=== PATIENT | male | born 1965 | race Caucasian/White ===

== ENCOUNTER 2017-09-23 14:55 | Outpatient (CLI) | payer OTHER ==
[~2017-09-23] VITALS: Ht 172.7 cm; Wt 111.1 kg
[~2017-09-23 14:55] MED LIST: ALLP300T; ALLP300T PO; CLIN300C3 PO; HCTZ12.5T PO; LSNP10T PO; METF500T8; MPR22T; SULF1TAB38 PO
[2017-09-23] MEDS ORDERED: ALLO300T2 PO (16:16)
[2017-09-23] MEDS ORDERED: LISI1TAB8 PO (16:16)
[2017-09-23] MEDS ORDERED: FINA5TAB PO (16:16)
== END 2017-09-23 16:18 ==
LOC: PREOP 14:55
PROVIDERS: ATTEND Surgery
DX: Z01.818 Encounter for other preprocedural examination (principal); Z12.11 Encounter for screening for malignant neoplasm of colon; K21.9 Gastro-esophageal reflux disease without esophagitis

== ENCOUNTER 2017-09-29 08:42 | Day surgery (SDC) | payer OTHER ==
[~2017-09-29] VITALS: Ht 172.7 cm; Wt 111.1 kg
[~2017-09-29 08:42] MED LIST changes: +ALLO300T2 PO; +FINA5TAB PO; +LISI1TAB8 PO
[2017-09-29] MEDS ORDERED: NS IV 500 ML 500 ML IV PRN (08:49)
[2017-09-29 09:00] VITALS: BP 137/87
[2017-09-29] MEDS ORDERED: HURRICAINE EXT TUBE (BENZOCAINE) XX PRN (09:00)
--- NOTE | 2017-09-29 11:15 | History & Physicial ---
History of Present Illness History of Present Illness Reason for visit/HPI to undergo an upper endoscopy regarding symptoms of gastroesophageal reflux and concomitant screening colonoscopy Date of Admission 09/29/17 Date Seen by Provider: Sep 29, 2017 Time Seen by Provider: 11:13 I consulted on this patient on 09/29/17 11:12 Attending Physician Anu Hartman MD Admitting Physician Jazmin Adames DO Consult Allergies and Home Medications Allergies Coded Allergies: Sulfa (Sulfonamide Antibiotics) (Unverified Allergy, Unknown, 09/29/17) Home Medications Allopurinol 300 Mg Tablet, 300 MG PO DAILY, (Reported) Finasteride 5 Mg Tablet, 5 MG PO DAILY, (Reported) Lisinopril/Hydrochlorothiazide 1 Each Tablet, 1 EACH PO DAILY, (Reported) Past Zynkjfw-Iecelw-Byksuh Hx Patient Social History Marrital Status: single Employed/Student: employed Alcohol Use: Occasionally Uses Number of Drinks Today: 0 Alcohol Beverage of Choice: Beer Recreational Drug Use: No Smoking Status: Current Everyday Smoker Type Used: Cigarettes Recent Foreign Travel: No Contact w/other who traveled: No Recent Hopitalizations: No Recent Infectious Disease Expo: No Immunizations Up To Date Date of Influenza Vaccine: Sep 14, 2017 Seasonal Allergies Seasonal Allergies: No Surgeries No Respiratory No Cardiovascular Hypertension Neurological No Reproductive System Hx Reproductive Disorders: No Gastrointestinal Gastroesophageal Reflux Musculoskeletal Gout Constitutional: no symptoms reported EENTM: no symptoms reported Respiratory: no symptoms reported Cardiovascular: no symptoms reported Gastrointestinal: see HPI Genitourinary: no symptoms reported Musculoskeletal: no symptoms reported Skin: no symptoms reported Psychiatric/Neurological: No Symptoms Reported Physical Exam Vital Signs Vital Sign - Last 12Hours 09/29/17 09:00 Temp 97.8 Pulse 99 Resp 16 B/P (MAP) 137/87 (104) Pulse Ox 96 O2 Delivery Room Air Capillary Refill : General Appearance: No Apparent Distress HEENT: Normal ENT Inspection Neck: Normal Inspection Respiratory: Lungs Clear Cardiovascular: Regular Rate, Rhythm Gastrointestinal: Non Tender, Soft Rectal: Deferred Back: Normal Inspection Extremity: Normal Inspection Neurologic/Psychiatric: Alert, Oriented x3 Skin: Normal Color, Warm/Dry Assessment/Plan Assessment and Plan gentleman with symptoms of reflux disease. Need for screening for colon cancer. 4 combined upper endoscopy and colonoscopy. Problems: ANU HARTMAN MD Sep 29, 2017 11:15 am
--- NOTE | 2017-09-29 11:15 | Conscious Sedation/ASA ---
Conscious Sedation Pre-Proced Time Reviewed: 11:15 ASA Class: 2 Airway Mallampati Classification: ([place] appropriate class) I. II. III, IV Lungs Heart ASA score ASA 1: a normal healthy patient ASA 2: a patient with a mild systemic disease (mid diabetes, controlled hypertension, obesity ASA 3: a patient with a severe systemic disease that limits activity (angina , COPD, prior Myocardial infarction) ASA 4: a patient with an incapacitating disease that is a constant threat to life (CHF, renal failure) ASA 5: a moribund patient not expected to survive 24 hrs. (ruptured aneurysm) ASA 6: a declared brain patient whose organs are being harvested. For emergent operations, add the letter E after the classification Grade 1 Sedation Plan: Discussed options with patient/fam Note The patient is an appropriate candidate to undergo the planned procedure, sedation, and anesthesia. The patient immediately re-assessed prior to indication. ANU SENA MD Sep 29, 2017 11:15 am
[2017-09-29] MEDS ORDERED: fentaNYL INJECTION 100 MCG/2 ML AMP ONE ×2 (11:44)
[2017-09-29] MEDS ORDERED: HURRICAINE EXT TUBE (BENZOCAINE) ONE (11:44)
[2017-09-29] MEDS ORDERED: MIDAZOLAM 2 MG/2 ML (VERSED) VIAL ONE ×5 (11:44)
[2017-09-29] MEDS: MIDAZOLAM 2 MG/2 ML (VERSED) VIAL IVP PRN ×3 (11:52→11:59)
[2017-09-29] MEDS: fentaNYL INJECTION 100 MCG/2 ML AMP IVP PRN ×3 (11:53→12:05)
--- NOTE | 2017-09-29 12:18 | Endo Procedure Record ---
Endo Procedure Report Date of Procedure Sep 29, 2017 Surgeon (s) ANU SENA MD Post Procedure/Op Diagnosis EGD: multiple, chronic duodenal ulcers Distal gastritis Normal colonoscopy Procedure Performed EGD with antral biopsy for H. pylori Colonoscopy to cecum Description of Procedure Anesthesia Type: Conscious Sedation Specimen(s) collected/removed antral mucosa for H. pylori Description of the Procedure indication for the procedures: This gentleman came in for an endoscopic assessment of symptoms of reflux disease along with screening colonoscopy. He reported a family history of colon cancer and polyps Informed consent was obtained after reviewing the procedures in detail. Description of the procedures. EGD/antral biopsy: He was placed in left lateral decubitus position and his vital signs were monitored. Conscious sedation was achieved using Versed and fentanyl. The flexible gastroscope was introduced down the esophagus, past the stomach, into the proximal duodenum. Findings Esophagus: Normal Stomach: Mild distal gastritis. Duodenum: Multiple, chronic ulcers along the first part with slough at the base , confirming chronicity. These ranged in diameter from 2-3 mm. An antral biopsy was obtained for Helicobacter status He tolerated the procedure well and was turned around in preparation for colonoscopy. Impression: Symptoms of gastroesophageal reflux disease. Distal gastritis and multiple duodenal ulcers. Helicobacter status pending Colonoscopy: Digital rectal examination was unremarkable. The colonoscope was then introduced into the rectum and advanced all the way up to the cecum. Quality of bowel preparation was reasonable. The scope was then withdrawn slowly and the mucosa examined in a systematic fashion There was no abnormality He tolerated the procedures well and was taken to the nursing area in a stable condition. Impression: Normal screening colonoscopy. Positive family history. Recommended repeating in 5 years. Copies To: CHARLEY ALLEN XAVIER M MD Sep 29, 2017 12:18 pm
[2017-09-29] MEDS ORDERED: PANT40TA2 PO (12:20)
--- NOTE | 2017-09-29 12:21 | Discharge Inst-Simple/Standard ---
Discharge Inst-Standard Discharge Medications New, Converted or Re-Newed RX: RX on Chart Patient Instructions/Follow Up Plan of Care/Instructions/FU: repeat colonoscopy in 5 years. Follow up with his primary. To avoid nonsteroidals Activity as Tolerated: Yes Discharge Diet: No Restrictions ANU SENA MD Sep 29, 2017 12:21 pm
[2017-09-29 12:40] VITALS: BP 139/86
[2017-09-29 13:20] VITALS: BP 127/85
[2017-09-29 13:35] VITALS: BP 127/85
== END 2017-09-29 13:35 | disposition home or self-care (01) ==
LOC: ENDO 08:42
PROVIDERS: ATTEND Surgery
DX: Z12.11 Encounter for screening for malignant neoplasm of colon (principal); K26.7 Chronic duodenal ulcer without hemorrhage or perforation; K29.70 Gastritis, unspecified, without bleeding; Z80.0 Family history of malignant neoplasm of digestive organs; Z83.71 Family history of colonic polyps; F17.210 Nicotine dependence, cigarettes, uncomplicated; I10 Essential (primary) hypertension; Z79.899 Other long term (current) drug therapy

== ENCOUNTER → 2021-08-06 | Outpatient (CLI) | payer SELFPAY ==
[~2021-08-06] MED LIST changes: +LISI1TAB46 PO; -LISI1TAB8 PO; +PANT40TA2 PO
--- NOTE | 2021-08-06 15:26 | Diagnostic Imaging Report ---
INDICATION: Pneumonia. Persistent cough. EXAMINATION: Two views of the chest. FINDINGS: Normal heart size and vascularity. The lungs are clear. There is no effusion or pneumothorax. IMPRESSION: No acute abnormality is seen with no significant change from 08/05/2011. Dictated by: Dictated on workstation # [id number]
== END ==
LOC: RAD 13:54
PROVIDERS: ATTEND Family Medicine
DX: J18.9 Pneumonia, unspecified organism (principal)
CPT/HCPCS: 71046

== ENCOUNTER 2022-11-10 05:57 | Outpatient (CLI) | payer OTHER ==
[~2022-11-10] VITALS: Ht 172.7 cm; Wt 110.2 kg
[2022-11-12] MEDS ORDERED: OMEG100032 PO (13:45)
[2022-11-12] MEDS ORDERED: FAMO10TA43 PO (13:45)
[2022-11-12] MEDS ORDERED: CETI10TA17 PO (13:45)
== END 2022-11-12 13:47 | disposition home or self-care (01) ==
LOC: PREOP 05:57
PROVIDERS: ATTEND Internal Medicine
DX: Z01.818 Encounter for other preprocedural examination (principal)

== ENCOUNTER 2022-11-19 08:01 | Day surgery (SDC) | payer BC, OTHER ==
--- NOTE | 2022-11-09 06:55 | HISTORY AND PHYSICAL ---
DATE OF SERVICE: 11/19/2022 COLONOSCOPY SUMMARY HISTORY OF PRESENT ILLNESS: The patient is a 57-year-old white male referred by Dr. Adames for screening colonoscopy as well as diagnostic EGD. He last underwent colonoscopy over 6 years ago, at which time he thinks he may have had [address] Hart[address] He reports an aunt with history of colon cancer. He has been having increase in epigastric pain compatible with previous pain he had with an ulcer, diagnosed in 2017 after undergoing EGD reportedly a duodenal ulcer. He does smoke a pack of cigarettes per day and reports at least two, many times four to five beers most nights of the week. He does not report any aspirin usage with occasional anti-inflammatory use. He denies melena or bright red blood per rectum. Denies change in bowel habits. PAST MEDICAL HISTORY: Significant for hypertension, gout for which he takes allopurinol and for alopecia he is on finasteride. He has been taking Pepcid-AC as well, 3-4 per day, but still having significant epigastric symptoms. PAST SURGICAL HISTORY: He has had carpal tunnel release in the distant past. FAMILY HISTORY: Father living at age of 77 with no health problems. Mother living at the age of 77 with atrial fibrillation and has undergone ablation for this and has a history of hypertension, had an aunt with colon cancer, also a grandfather with colon cancer and a grandmother with breast cancer on his father's side. 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 PHYSICAL EXAMINATION: GENERAL: Reveals a white male who appeared to be in no acute distress. VITAL SIGNS: Weight 243 pounds, blood pressure 130/82. HEENT: Unremarkable. Sclerae nonicteric. No evidence for pallor. CHEST: Clear to auscultation. CARDIOVASCULAR: Reveals a regular rate and rhythm without murmur, S3, or S4. ABDOMEN: Soft, supple, mild epigastric discomfort to palpation is present without rebound or guarding. No mass or organomegaly noted. Bowel sounds positive, no bruits noted. EXTREMITIES: Revealed no cyanosis, clubbing or edema. ASSESSMENT AND PLAN: The patient is being set up for screening colonoscopy, deemed to be at higher than average risk due to family history of colon cancer as well as diagnostic EGD due to epigastric pain, history of peptic ulcer disease, risk factors including smoking and alcohol consumption outside of moderation in addition to past history for peptic ulcer disease. Prep instructions were given. Questions were answered. Thank you for referral of this pleasant gentleman. Job ID: [id number] DocumentID: [id number] Dictated Date: 11/03/2022 11:48:28 [employer] Utility Worker Date: 11/03/2022 12:19:00 Dictated By: ROSS EDMONDS MD
[~2022-11-19] VITALS: Ht 172.7 cm; Wt 110.2 kg
[~2022-11-19 08:01] MED LIST changes: +CETI10TA17 PO; +FAMO10TA43 PO; +OMEG100032 PO
[2022-11-19] MEDS ORDERED: LACTATED RINGERS 1,000 ML IV STA (08:05)
[2022-11-19] MEDS ORDERED: HURRICAINE EXT TUBE (BENZOCAINE) XX PRN (08:15)
[2022-11-19 08:23] VITALS: BP 121/76
--- NOTE | 2022-11-19 08:38 | Pre-Op Note & Conscious Sedat ---
Pre-Operative Progress Note Date H&P Reviewed: Nov 19, 2022 Time H&P Reviewed: 08:38 History & Physical: H&P Reviewed, Patient Examed, No changes noted Pre-Op Diagnosis: screening plus epigastric pain Conscious Sedation Pre-Proced ASA Score 2 For ASA 3 and 4: Consider anesthesia and medical clearance. Also, for patients with a history of failed moderate sedation consider anesthesia. Airway Lungs Heart ASA score ASA 1: a normal healthy patient ASA 2: a patient with a mild systemic disease (mid diabetes, controlled hypertension, obesity ASA 3: a patient with a severe systemic disease that limits activity (angina, COPD, prior Myocardial infarction) ASA 4: a patient with an incapacitating disease that is a constant threat to life (CHF, renal failure) ASA 5: a moribund patient not expected to survive 24 hrs. (ruptured aneurysm) ASA 6: a declared brain- patient whose organs are being harvested. For emergent operations, add the letter E after the classification Mallampati Classification Grade 2 Sedation Plan Analgesia, Amnesia, Plan communicated to team members, Discussed options with patient/fam, Discussed risks with patient/fam The patient is an appropriate candidate to undergo the planned procedure, sedation, and anesthesia. The patient immediately re-assessed prior to indication. ROSS EDMONDS MD Nov 19, 2022 08:38
[2022-11-19] MEDS ORDERED: PROPOFOL INJECTION 50 ML IV ONE (09:09)
[2022-11-19] MEDS ORDERED: MIDAZOLAM 2 MG/2 ML (VERSED) VIAL ONE (09:09)
[2022-11-19 09:45] VITALS: BP 113/67
[2022-11-19 09:50] VITALS: BP 105/67
--- NOTE | 2022-11-19 09:50 | Progress Note-Post Operative ---
Post-Procedure Note Physician (s)/Inspector Filters (s) Physician ROSS EDMONDS MD Pre-Procedure Diagnosis Pre-Procedure Diagnosis: screening plus epigastric pain Post-Procedure Diagnosis Post-operative diagnosis: The endoscope was inserted in the oral cavity and under direct visualization the esophagus is intubated. The endoscope passed down esophagus to stomach and second portion of the duodenum. A careful inspection was made as the endoscope was withdrawn. Findings: The posterior pharynx other than fatty hypertrophy was unremarkable the epiglottis true and false vocal folds and arytenoid aperture were unremarkable. The proximal midesophagus were unremarkable. At the Z-line several small shallow areas of ulceration with erythema were noted without evidence for overt Escalera's change. No evidence for hiatal hernia formation was noted. Biopsies obtained and submitted for histopathology. The cardia and fundus of the stomach are unremarkable. The antrum revealed some mild erythema without evidence for ulceration. Biopsy was obtained and submitted for histopathology and Helicobacter evaluation. The pylorus the pyloric channel duodenal bulb and second portion were unremarkable. Assessment findings compatible with LA grade a erosive esophagitis were noted. Patient also had mild antral gastritis for which alcohol may be a contributing factor but biopsies are pending for histopathology and H. pylori evaluation. I did take the liberty of sending out a prescription for pantoprazole 40 mg daily for which the patient will need refills. Strongly advocated at minimum reduction at best cessation of alcohol consumption. We then proceeded with colonoscopy. Prior to going colonoscopy digital rectal evaluation was performed. Anal sphincter tone was normal and the perianal reflexes intact. Prostate is mildly enlarged and a nodular on digital inspection. No other abnormalities noted on digital inspection anal canal or distal rectal vault. The colonoscope was inserted into the rectum and a direct physician advanced the cecum. The cecum was identified by indication of the ileocecal valve and cecal strap. Photographic activation was obtained. Quality prep was fair. Findings: There are no evidence for internal or external hemorrhoids in the rectum sigmoid colon and descending colon were unremarkable. Present in the distal transverse colon was a 3 mm sessile polyp that was biopsied and ablated with no subsequent blood loss with hot forceps. The remainder the transverse colon hepatic flexure ascending colon and cecum were unremarkable. A/P 1. 1 diminutive polyp was removed from the distal transverse colon. As long as there are no surprises on histopathology report would advocate consideration for repeat screening colonoscopy in 10 years. Digital evaluation the prostate was compatible with mild BPH. This was an otherwise normal colonoscopy to cecum. CC: Dr. Luisito Chatterjee MD. ROSS EDMONDS MD Nov 19, 2022 09:50
[2022-11-19 10:34] VITALS: BP 114/83
[2022-11-19] MEDS ORDERED: PANT40TA52 PO (12:08)
--- NOTE | 2022-11-19 12:09 | Anesthesia-General Post-Op ---
MAC Patient Condition Mental Status/LOC: Same as Preop Cardiovascular: Satisfactory Nausea/Vomiting: Absent Respiratory: Satisfactory Pain: Controlled Complications: Absent Post Op Complications Complications None Follow Up Care/Instructions Patient Instructions None needed. Anesthesiology Discharge Order Discharge Order Patient is doing well, no complaints, stable vital signs, no apparent adverse anesthesia problems. No complications reported per nursing. LEXUS GARCIA CRNA Nov 19, 2022 12:09
== END 2022-11-19 10:36 | disposition home or self-care (01) ==
LOC: ENDO 08:01
PROVIDERS: ATTEND Internal Medicine
DX: Z12.11 Encounter for screening for malignant neoplasm of colon (principal); K29.70 Gastritis, unspecified, without bleeding; K63.5 Polyp of colon; F17.210 Nicotine dependence, cigarettes, uncomplicated; N40.0 Benign prostatic hyperplasia without lower urinary tract symptoms; K21.9 Gastro-esophageal reflux disease without esophagitis; Z80.0 Family history of malignant neoplasm of digestive organs
CPT/HCPCS: 88305